=== PATIENT | male | born 1980 | race Caucasian/White ===

== ENCOUNTER 2020-08-19 17:48 | Inpatient (IN) | payer OTHER ==
[2020-08-19] MEDS ORDERED: ONDANSETRON 4 MG/2 ML VIAL IVPUSH ONE (18:27)
[2020-08-19] MEDS ORDERED: SODIUM CHLORIDE 1,000 ML IV STA (18:27)
[2020-08-19] MEDS ORDERED: DEXAMETHASONE SOD PHOSPHATE 10 MG/1 ML VIAL IVPUSH ONE (18:32)
[2020-08-19] MEDS ORDERED: AZITHROMYCIN IVPB 500 MG in DEXTROSE 5%-WATER - 250 ML IVPB ONE (18:34)
[2020-08-19] MEDS ORDERED: CEFTRIAXONE 1 GM in DEXTROSE 5%-WATER - 100 ML IVPB ONE (18:34)
[2020-08-19] MEDS ORDERED: cefTRIAXone SODIUM 1 GM VIAL ONE (18:42)
[2020-08-19] MEDS ORDERED: AZITHROMYCIN 500 MG VIAL IVPB ONE (18:42)
[2020-08-19] MEDS ORDERED: DEXAMETHASONE SOD PHOSPHATE 10 MG/1 ML VIAL ONE (18:42)
[2020-08-19 18:49] LABS: BASO % 0.2 % (0-2.0); EOS % 0.1 % (0-4.5); HEMATOCRIT 42.5 % (35.4-49); HEMOGLOBIN 14.2 GM/dl (11.7-16.9); LYMPH % 7.1 % (8-40); MCH 27.8 pg (25.7-33.7); MCHC 33.5 g/dl (32.0-35.9); MEAN PLT VOLUME 8.4 fl (7.5-11.1); MONO % 4.7 % (3.8-10.2); NEUT % 87.9 % (42.8-82.8); PLATELET COUNT 163 K/MM3 (134-434); RBC 5.12 M/mm3 (4.00-5.60); RDW 12.9 % (11.9-15.9); WHITE BLOOD COUNT 3.7 K/mm3 (4.0-10.8)
[2020-08-19 19:03] VITALS: BMI 38.0
[2020-08-19 19:15] LABS: ALBUMIN 3.4 g/dl (3.4-5.0); ALK PHOS 87 U/L (45-117); ANION GAP 15 MMOL/L (8-16); BILIRUBIN,DIRECT 0.5 mg/dL (0.0-0.2); BILIRUBIN,TOTAL 1.2 mg/dl (0.2-1); CALCIUM 8.2 mg/dl (8.5-10); CHLORIDE 101 mmol/L (98-107); CO2 20 mmol/L (21-32); CREATININE 1.2 mg/dl (0.55-1.3); GLUCOSE,RANDOM 108 mg/dl (74-106); LDH 479 U/L (84-246); POTASSIUM 3.6 mmol/L (3.5-5.1); SGOT/AST 49 U/L (15-37); SGPT/ALT 59 U/L (13-61); SODIUM 136 mmol/L (136-145); TOT PROT 6.6 g/dl (6.4-8.2)
[2020-08-19 19:18] LABS: ACTIVATED PTT 25.5 SECONDS (25.2-36.5)
[2020-08-19 19:23] LABS: INR 1.34 (0.82-1.09); PROTHROMBIN TIME (PATIENT) 14.7 SEC (10.2-13.0)
[2020-08-19] MEDS ORDERED: ENOXAPARIN NA (PORCINE) 120 MG/0.8 ML DISP.SYRIN SQ SCH (20:15)
[2020-08-19] MEDS ORDERED: ENOXAPARIN NA (PORCINE) 60 MG/0.6 ML DISP.SYRIN SQ ONE (20:24)
[2020-08-19] MEDS ORDERED: ENOXAPARIN NA (PORCINE) 100 MG/1 ML DISP.SYRIN SQ ONE (20:24)
[2020-08-19] MEDS ORDERED: SODIUM CHLORIDE 0.9% 500 ML INFUS.BAG IV ONE (21:08)
[2020-08-19] MEDS: DEXTROSE 5%-NORMAL SALINE 1,000 ML IV SCH (23:46)
[2020-08-20] MEDS ORDERED: CEFTRIAXONE 1 GM in DEXTROSE 5%-WATER - 50 ML IVPB ONE (06:41)
[2020-08-20] MEDS ORDERED: DEXTROSE 5%-WATER - 50 ML IVPB ONE (07:32)
[2020-08-20] MEDS ORDERED: cefTRIAXone SODIUM 1 GM VIAL ONE (07:32)
[2020-08-20 08:29] LABS: HEMATOCRIT 36.2 % (35.4-49); HEMOGLOBIN 12.3 GM/dL (11.7-16.9); MCH 27.6 pg (25.7-33.7); MCHC 34.1 g/dl (32.0-35.9); MEAN CELL VOLUME 80.9 fl (80-96); MEAN PLT VOLUME 8.1 fl (7.5-11.1); PLATELET COUNT 168 K/MM3 (134-434); RBC 4.47 M/mm3 (4.00-5.60); RDW 14.6 % (11.9-15.9); WHITE BLOOD COUNT 3.7 K/mm3 (4.0-10.0)
[2020-08-20 08:50] LABS: POTASSIUM 3.9 mmol/L (3.5-5.1)
[2020-08-20 08:55] LABS: BLOOD UREA NITROGEN 15.3 mg/dL (7-18)
[2020-08-20 08:56] LABS: CALCIUM 7.8 mg/dL (8.5-10.1)
[2020-08-20 08:57] LABS: ALBUMIN 2.6 g/dl (3.4-5.0); MAGNESIUM 2.3 mg/dL (1.8-2.4)
[2020-08-20 09:00] LABS: CREATININE 0.9 mg/dL (0.55-1.3); PHOSPHOROUS 2.1 mg/dL (2.5-4.9)
[2020-08-20 09:01] LABS: BILIRUBIN,TOTAL 0.5 mg/dL (0.2-1)
[2020-08-20 09:02] LABS: TOT PROT 5.6 g/dl (6.4-8.2)
[2020-08-20] MEDS ORDERED: FLU VACCINE (FLULAVAL) PF 60 MCG/0.5 ML SYRINGE 2020-2021 IM ONE (10:00)
[2020-08-20] MEDS ORDERED: PT OWN MED DRAWER 7, Y5N ONE ×2 (10:02→22:48)
[2020-08-20] MEDS: ASCORBIC ACID 500 MG TABLET (FP) PO SCH ×2 (10:05→23:02)
[2020-08-20] MEDS: OXcarbazepine 300 MG TABLET (UD) PO SCH ×2 (10:06→23:02)
[2020-08-20] MEDS: ZINC SULFATE 220 MG CAPSULE (FP) PO SCH ×2 (10:06→23:02)
[2020-08-20] MEDS: DEXAMETHASONE SOD PHOSPHATE 4 MG/1 ML VIAL IVPUSH SCH (10:06)
[2020-08-20] MEDS: ENOXAPARIN NA (PORCINE) 120 MG/0.8 ML DISP.SYRIN SQ SCH ×2 (10:06→23:01)
[2020-08-20] MEDS: AZITHROMYCIN IVPB 500 MG/250 ML BAG IVPB SCH (10:07)
[2020-08-20] MEDS: ESCITALOPRAM OXALATE 20 MG TABLET PO SCH (10:07)
[2020-08-20] MEDS: CHOLECALCIFEROL (VIT D3) 1,000 UNIT (25 MCG) TABLET PO SCH (10:07)
[2020-08-20] MEDS ORDERED: REMDESIVIR 200 MG in SODIUM CHLORIDE 210 ML IVPB ONE (15:47)
[2020-08-20] MEDS: DEXTROSE 5%-NORMAL SALINE 1,000 ML IV SCH (23:02)
[2020-08-21] MEDS ORDERED: hydrOXYzine PAMOATE 50 MG CAPSULE (FP) PO ONE (00:59)
[2020-08-21 08:27] LABS: BASO % 0.1 % (0-2.0); HEMATOCRIT 34.7 % (35.4-49); HEMOGLOBIN 11.7 GM/dL (11.7-16.9); LYMPH % 7.2 % (8-40); MCHC 33.8 g/dl (32.0-35.9); MEAN CELL VOLUME 79.9 fl (80-96); MEAN PLT VOLUME 8.1 fl (7.5-11.1); MONO % 6.6 % (3.8-10.2); NEUT % 86.1 % (42.8-82.8); PLATELET COUNT 200 K/MM3 (134-434); RBC 4.34 M/mm3 (4.00-5.60); RDW 14.4 % (11.9-15.9); WHITE BLOOD COUNT 6.3 K/mm3 (4.0-10.0)
[2020-08-21 08:48] LABS: POTASSIUM 3.9 mmol/L (3.5-5.1)
[2020-08-21 09:00] LABS: ALBUMIN 2.4 g/dl (3.4-5.0); BLOOD UREA NITROGEN 9.6 mg/dL (7-18)
[2020-08-21 09:01] LABS: BILIRUBIN,TOTAL 0.4 mg/dL (0.2-1); TOT PROT 5.2 g/dl (6.4-8.2)
[2020-08-21 09:03] LABS: CALCIUM 7.5 mg/dL (8.5-10.1); CREATININE 0.7 mg/dL (0.55-1.3); MAGNESIUM 2.2 mg/dL (1.8-2.4)
[2020-08-21] MEDS ORDERED: DEXTROSE 5%-WATER 100 ML IVPB ONE (09:41)
[2020-08-21] MEDS: AZITHROMYCIN IVPB 500 MG/250 ML BAG IVPB SCH (09:54)
[2020-08-21] MEDS: CEFTRIAXONE 2 GM in DEXTROSE 5%-WATER 2 GM/100 ML BAG IVPB SCH (09:54)
[2020-08-21] MEDS: ESCITALOPRAM OXALATE 20 MG TABLET PO SCH (09:55)
[2020-08-21] MEDS: ZINC SULFATE 220 MG CAPSULE (FP) PO SCH ×2 (09:55→23:46)
[2020-08-21] MEDS: ENOXAPARIN NA (PORCINE) 120 MG/0.8 ML DISP.SYRIN SQ SCH ×2 (09:55→23:46)
[2020-08-21] MEDS: OXcarbazepine 300 MG TABLET (UD) PO SCH ×2 (09:55→23:46)
[2020-08-21] MEDS: CHOLECALCIFEROL (VIT D3) 1,000 UNIT (25 MCG) TABLET PO SCH (09:55)
[2020-08-21] MEDS: DEXAMETHASONE SOD PHOSPHATE 4 MG/1 ML VIAL IVPUSH SCH (09:55)
[2020-08-21] MEDS: ASCORBIC ACID 500 MG TABLET (FP) PO SCH ×2 (09:55→23:46)
[2020-08-21] MEDS: REMDESIVIR 100 MG in SODIUM CHLORIDE 230 ML IVPB SCH (17:11)
[2020-08-21] MEDS ORDERED: PT OWN MED DRAWER 7, Y5N ONE (23:43)
[2020-08-21] MEDS: hydrOXYzine PAMOATE 50 MG CAPSULE (FP) PO PRN (23:46)
[2020-08-21] MEDS: DEXTROSE 5%-NORMAL SALINE 1,000 ML IV SCH (23:46)
[2020-08-22 07:48] LABS: POTASSIUM 3.8 mmol/L (3.5-5.1)
[2020-08-22 07:50] LABS: ALBUMIN 2.3 g/dl (3.4-5.0); BLOOD UREA NITROGEN 9.9 mg/dL (7-18); CALCIUM 7.6 mg/dL (8.5-10.1)
[2020-08-22 07:51] LABS: MAGNESIUM 2.2 mg/dL (1.8-2.4)
[2020-08-22 07:54] LABS: CREATININE 0.7 mg/dL (0.55-1.3)
[2020-08-22 07:55] LABS: BILIRUBIN,TOTAL 0.5 mg/dL (0.2-1); TOT PROT 5.2 g/dl (6.4-8.2)
[2020-08-22 08:18] LABS: BASO % 0.1 % (0-2.0); HEMATOCRIT 34.6 % (35.4-49); HEMOGLOBIN 11.8 GM/dL (11.7-16.9); LYMPH % 8.6 % (8-40); MCH 27.3 pg (25.7-33.7); MEAN CELL VOLUME 80.4 fl (80-96); MONO % 8.6 % (3.8-10.2); NEUT % 82.7 % (42.8-82.8); PLATELET COUNT 218 K/MM3 (134-434); RDW 14.6 % (11.9-15.9); WHITE BLOOD COUNT 5.3 K/mm3 (4.0-10.0)
[2020-08-22] MEDS ORDERED: DEXTROSE 5%-WATER 100 ML IVPB ONE (09:07)
[2020-08-22] MEDS: CEFTRIAXONE 2 GM in DEXTROSE 5%-WATER 2 GM/100 ML BAG IVPB SCH (09:32)
[2020-08-22] MEDS: AZITHROMYCIN IVPB 500 MG/250 ML BAG IVPB SCH (09:32)
[2020-08-22] MEDS: DEXAMETHASONE SOD PHOSPHATE 4 MG/1 ML VIAL IVPUSH SCH (09:32)
[2020-08-22] MEDS: ASCORBIC ACID 500 MG TABLET (FP) PO SCH ×2 (09:33→21:39)
[2020-08-22] MEDS: ESCITALOPRAM OXALATE 20 MG TABLET PO SCH (09:33)
[2020-08-22] MEDS: CHOLECALCIFEROL (VIT D3) 1,000 UNIT (25 MCG) TABLET PO SCH (09:33)
[2020-08-22] MEDS: ZINC SULFATE 220 MG CAPSULE (FP) PO SCH ×2 (09:35→21:39)
[2020-08-22] MEDS ORDERED: PT OWN MED DRAWER 7, Y5N ONE (09:35)
[2020-08-22] MEDS: ENOXAPARIN NA (PORCINE) 120 MG/0.8 ML DISP.SYRIN SQ SCH ×2 (09:35→21:38)
[2020-08-22] MEDS: OXcarbazepine 300 MG TABLET (UD) PO SCH ×2 (09:35→21:39)
[2020-08-22] MEDS: REMDESIVIR 100 MG in SODIUM CHLORIDE 230 ML IVPB SCH (16:35)
[2020-08-22] MEDS: DEXTROSE 5%-NORMAL SALINE 1,000 ML IV SCH ×2 (21:44→23:43)
[2020-08-22] MEDS: hydrOXYzine PAMOATE 50 MG CAPSULE (FP) PO PRN (23:39)
[2020-08-23 08:45] LABS: BASO % 0.1 % (0-2.0); HEMATOCRIT 35.5 % (35.4-49); HEMOGLOBIN 11.9 GM/dL (11.7-16.9); LYMPH % 16.3 % (8-40); MCHC 33.6 g/dl (32.0-35.9); MEAN CELL VOLUME 80.2 fl (80-96); MEAN PLT VOLUME 7.6 fl (7.5-11.1); MONO % 7.9 % (3.8-10.2); NEUT % 75.7 % (42.8-82.8); PLATELET COUNT 243 K/MM3 (134-434); RBC 4.42 M/mm3 (4.00-5.60); RDW 14.1 % (11.9-15.9); WHITE BLOOD COUNT 5.3 K/mm3 (4.0-10.0)
[2020-08-23] MEDS ORDERED: DEXTROSE 5%-WATER 100 ML IVPB ONE (08:46)
[2020-08-23] MEDS ORDERED: PT OWN MED DRAWER 7, Y5N ONE ×2 (08:46→20:46)
[2020-08-23 09:00] LABS: POTASSIUM 3.5 mmol/L (3.5-5.1)
[2020-08-23] MEDS: ESCITALOPRAM OXALATE 20 MG TABLET PO SCH (09:00)
[2020-08-23] MEDS: CEFTRIAXONE 2 GM in DEXTROSE 5%-WATER 2 GM/100 ML BAG IVPB SCH (09:00)
[2020-08-23] MEDS: AMINO ACIDS/PROTEIN HYDROLYS 30 ML LIQUID.PKT PO SCH (09:00)
[2020-08-23] MEDS: AZITHROMYCIN IVPB 500 MG/250 ML BAG IVPB SCH (09:00)
[2020-08-23] MEDS: ZINC SULFATE 220 MG CAPSULE (FP) PO SCH ×2 (09:00→22:01)
[2020-08-23] MEDS: ASCORBIC ACID 500 MG TABLET (FP) PO SCH ×2 (09:01→22:01)
[2020-08-23] MEDS: CHOLECALCIFEROL (VIT D3) 1,000 UNIT (25 MCG) TABLET PO SCH (09:01)
[2020-08-23] MEDS: ENOXAPARIN NA (PORCINE) 120 MG/0.8 ML DISP.SYRIN SQ SCH ×2 (09:14→22:00)
[2020-08-23 09:15] LABS: ALBUMIN 2.3 g/dl (3.4-5.0)
[2020-08-23] MEDS: OXcarbazepine 300 MG TABLET (UD) PO SCH ×2 (09:15→22:01)
[2020-08-23 09:17] LABS: CALCIUM 7.7 mg/dL (8.5-10.1)
[2020-08-23 09:18] LABS: BLOOD UREA NITROGEN 8.9 mg/dL (7-18)
[2020-08-23 09:21] LABS: BILIRUBIN,TOTAL 0.4 mg/dL (0.2-1); CREATININE 0.7 mg/dL (0.55-1.3)
[2020-08-23] MEDS: DEXAMETHASONE SOD PHOSPHATE 4 MG/1 ML VIAL IVPUSH SCH (09:52)
[2020-08-23] MEDS: REMDESIVIR 100 MG in SODIUM CHLORIDE 230 ML IVPB SCH (16:19)
[2020-08-23] MEDS: hydrOXYzine PAMOATE 50 MG CAPSULE (FP) PO PRN (22:01)
[2020-08-23] MEDS: DEXTROSE 5%-NORMAL SALINE 1,000 ML IV SCH (22:02)
[2020-08-24] MEDS: DEXTROSE 5%-NORMAL SALINE 1,000 ML IV SCH ×2 (01:42→22:10)
[2020-08-24 07:45] LABS: POTASSIUM 3.5 mmol/L (3.5-5.1)
[2020-08-24 07:53] LABS: CALCIUM 7.5 mg/dL (8.5-10.1)
[2020-08-24 07:54] LABS: ALBUMIN 2.2 g/dl (3.4-5.0)
[2020-08-24 07:56] LABS: CREATININE 0.7 mg/dL (0.55-1.3)
[2020-08-24 07:57] LABS: BILIRUBIN,TOTAL 0.9 mg/dL (0.2-1)
[2020-08-24 08:11] LABS: BASO % 0.1 % (0-2.0); EOS % 0.1 % (0-4.5); HEMATOCRIT 36.2 % (35.4-49); HEMOGLOBIN 12.3 GM/dL (11.7-16.9); LYMPH % 15.9 % (8-40); MCH 27.4 pg (25.7-33.7); MCHC 33.9 g/dl (32.0-35.9); MEAN CELL VOLUME 80.7 fl (80-96); MONO % 10.5 % (3.8-10.2); NEUT % 73.4 % (42.8-82.8); PLATELET COUNT 250 K/MM3 (134-434); RBC 4.49 M/mm3 (4.00-5.60); RDW 14.3 % (11.9-15.9); WHITE BLOOD COUNT 4.8 K/mm3 (4.0-10.0)
[2020-08-24] MEDS: ENOXAPARIN NA (PORCINE) 120 MG/0.8 ML DISP.SYRIN SQ SCH (08:58)
[2020-08-24] MEDS: AMINO ACIDS/PROTEIN HYDROLYS 30 ML LIQUID.PKT PO SCH (08:58)
[2020-08-24] MEDS ORDERED: PT OWN MED DRAWER 7, Y5N ONE (09:02)
[2020-08-24] MEDS ORDERED: DEXTROSE 5%-WATER 100 ML IVPB ONE ×2 (09:03→09:04)
[2020-08-24] MEDS: DEXAMETHASONE SOD PHOSPHATE 4 MG/1 ML VIAL IVPUSH SCH (09:58)
[2020-08-24] MEDS: CHOLECALCIFEROL (VIT D3) 1,000 UNIT (25 MCG) TABLET PO SCH (09:58)
[2020-08-24] MEDS: ZINC SULFATE 220 MG CAPSULE (FP) PO SCH ×2 (09:58→22:10)
[2020-08-24] MEDS: OXcarbazepine 300 MG TABLET (UD) PO SCH ×2 (09:59→22:10)
[2020-08-24] MEDS: AZITHROMYCIN IVPB 500 MG/250 ML BAG IVPB SCH (09:59)
[2020-08-24] MEDS: ASCORBIC ACID 500 MG TABLET (FP) PO SCH ×2 (09:59→22:10)
[2020-08-24] MEDS: ESCITALOPRAM OXALATE 20 MG TABLET PO SCH (09:59)
[2020-08-24] MEDS: CEFTRIAXONE 2 GM in DEXTROSE 5%-WATER 2 GM/100 ML BAG IVPB SCH (09:59)
[2020-08-24] MEDS: REMDESIVIR 100 MG in SODIUM CHLORIDE 230 ML IVPB SCH (16:59)
[2020-08-24] MEDS: APIXABAN 5 MG TABLET PO SCH (22:10)
[2020-08-24] MEDS: hydrOXYzine PAMOATE 50 MG CAPSULE (FP) PO PRN (22:11)
[2020-08-25 07:03] LABS: BASO % 0.1 % (0-2.0); EOS % 0.6 % (0-4.5); HEMATOCRIT 34.8 % (35.4-49); LYMPH % 12.8 % (8-40); MCH 27.8 pg (25.7-33.7); MCHC 34.4 g/dl (32.0-35.9); MEAN CELL VOLUME 80.9 fl (80-96); MEAN PLT VOLUME 7.8 fl (7.5-11.1); MONO % 10.1 % (3.8-10.2); NEUT % 76.4 % (42.8-82.8); PLATELET COUNT 260 K/MM3 (134-434); RDW 14.3 % (11.9-15.9); WHITE BLOOD COUNT 5.7 K/mm3 (4.0-10.0)
[2020-08-25 07:22] LABS: POTASSIUM 3.6 mmol/L (3.5-5.1)
[2020-08-25 07:32] LABS: BLOOD UREA NITROGEN 8.6 mg/dL (7-18); CALCIUM 7.6 mg/dL (8.5-10.1)
[2020-08-25 07:33] LABS: ALBUMIN 2.2 g/dl (3.4-5.0)
[2020-08-25 07:36] LABS: CREATININE 0.6 mg/dL (0.55-1.3)
[2020-08-25 07:37] LABS: BILIRUBIN,TOTAL 0.4 mg/dL (0.2-1)
[2020-08-25] MEDS ORDERED: DEXTROSE 5%-WATER 100 ML IVPB ONE (08:12)
[2020-08-25] MEDS ORDERED: PT OWN MED DRAWER 7, Y5N ONE ×2 (08:12→08:14)
[2020-08-25] MEDS: AMINO ACIDS/PROTEIN HYDROLYS 30 ML LIQUID.PKT PO SCH (09:02)
[2020-08-25] MEDS: APIXABAN 5 MG TABLET PO SCH (09:31)
[2020-08-25] MEDS: ESCITALOPRAM OXALATE 20 MG TABLET PO SCH (09:31)
[2020-08-25] MEDS: CHOLECALCIFEROL (VIT D3) 1,000 UNIT (25 MCG) TABLET PO SCH (09:31)
[2020-08-25] MEDS: ASCORBIC ACID 500 MG TABLET (FP) PO SCH (09:32)
[2020-08-25] MEDS: ZINC SULFATE 220 MG CAPSULE (FP) PO SCH (09:32)
[2020-08-25] MEDS: CEFTRIAXONE 2 GM in DEXTROSE 5%-WATER 2 GM/100 ML BAG IVPB SCH (09:33)
[2020-08-25] MEDS: OXcarbazepine 300 MG TABLET (UD) PO SCH (09:34)
[2020-08-25] MEDS ORDERED: DEXAMETHASONE 4 MG TABLET (FP) PO SCH (10:00)
[2020-08-25 16:48] VITALS: TEMP 98.2
[2020-08-25 17:52] VITALS: BP 99/59; PULSE 74
== END 2020-08-25 18:00 | disposition home or self-care (01) | DRG 177 ==
LOC: FER 17:48 → J4W 08-20 01:30
PROVIDERS: ADMIT Family Medicine; ATTEND Nurse Practitioner Acute Care
PROC: 8E0ZXY6 Isolation (ICD-10-PCS; 2020-08-19)
PROC: XW13325 Transfusion of Convalescent Plasma (Nonautologous) into Peripheral Vein, Percutaneous Approach, New Technology Group 5 (ICD-10-PCS; principal; 2020-08-20)
PROC: XW033E5 Introduction of Remdesivir Anti-infective into Peripheral Vein, Percutaneous Approach, New Technology Group 5 (ICD-10-PCS; 2020-08-20)
DX: U07.1 COVID-19 (principal); J96.01 Acute respiratory failure with hypoxia; J12.89 Other viral pneumonia; F31.9 Bipolar disorder, unspecified; D72.819 Decreased white blood cell count, unspecified; E66.9 Obesity, unspecified; Z68.38 Body mass index [BMI] 38.0-38.9, adult; E86.0 Dehydration
CPT/HCPCS: 36415; 36430; 71045-TC-FY; 80053; 81003; 81015; 82248; 82550; 82553; 82728; 83605; 83615; 83735; 84100; 84484; 85025; 85027; 85379; 85610; 85651; 85730; 86140; 86850; 86900; 86901; 87040; 87070; 87086; 87205; 87899; 93005; 99285-25; C9803; G0008; J1100; P9017; Q2036; U0003